=== PATIENT | female | born 2000 | race Two or more races ===

== ENCOUNTER 2023-02-07 07:05 | Day surgery (SDC) | payer OTHER ==
[~2023-02-07 07:05] MED LIST: TREXIMET 85-501 EACH PO; TRI-LO-ESTARYL1 EACH PO
== END 2023-02-07 20:05 | disposition home or self-care (01) ==
LOC: CIR.AMB 07:05
PROVIDERS: ATTEND Obstetrics & Gynecology Gynecologic Oncology
DX: D27.0 Benign neoplasm of right ovary (principal); R59.0 Localized enlarged lymph nodes; R97.8 Other abnormal tumor markers; F12.90 Cannabis use, unspecified, uncomplicated; E16.2 Hypoglycemia, unspecified